=== PATIENT | female | born 1990 | race Caucasian/White ===

== ENCOUNTER → 2019-08-31 | Outpatient (CLI) | payer BC ==
[~2019-08-31] MED LIST: NO HOME MEDICATIONS
[2019-08-31 17:31] LABS: BASO % 0.2 % (0.0-2.0); EOS # 0.1 (0.0-0.7); EOS % 0.8 % (0-4.0); GRAN # 7.7 (1.4-6.5); GRAN % 70.9 % (42.2-75.2); HEMOGLOBIN 12.2 g/dl (12.5-16.0); LYMPH # 2.5 (1.2-3.4); LYMPH % 22.7 % (20.0-51.0); MEAN CELL VOLUME 86 fl (80.0-100.0); MEAN CORPUSCULAR HEMOGLOBIN 29 pg (27.0-31.0); MEAN CORPUSCULAR HGB CONC 34 g/dl (33.0-37.0); MEAN PLATELET VOLUME 9.4 fl (7.4-10.4); MONO # 0.5 (0.1-0.6); PLATELET COUNT 331 K/mm3 (130-400); RED BLOOD COUNT 4.21 M/mm3 (4.10-5.30); REDCELL DISTRIBUTION WIDTH-CV 12.2 % (11.5-14.5)
[2019-08-31 17:40] LABS: ALBUMIN 4.2 gm/dL (3.5-5.0); BILIRUBIN,TOTAL 0.3 mg/dL (0.0-1.0); CALCIUM 9.5 mg/dL (8.4-10.2); CREATININE, serum 0.43 (0.52-1.25); MAGNESIUM 1.8 mg/dL (1.6-2.3); TOTAL PROTEIN 7.6 gm/dL (6.4-8.2)
[2019-08-31 18:11] LABS: THYROID STIMULATING HORMONE 0.602 uIU/mL (0.465-4.680)
== END ==
LOC: COL.LAB 17:02
PROVIDERS: Nurse Practitioner Family
DX: R00.2 Palpitations (principal)

== ENCOUNTER → 2020-02-14 | Outpatient (CLI) | payer BC ==
[~2020-02-14] MED LIST changes: +GLUCOPHAGE500 MG/TAB; +GLUCOPHAGE500 MG/TAB PO; +IBU800 M1 PO; +PERCOCET 325 MG1 TA2 PO; +PRENATAL TABLET PO; +PROCARDIA XL 3030 MG PO
== END | disposition still patient (30) ==
LOC: ZCOL.LAB 05:46
DX: Z20.828 Contact with and (suspected) exposure to other viral communicable diseases (principal)

== ENCOUNTER 2020-02-16 16:39 | Inpatient (IN) | payer BC ==
[~2020-02-16] VITALS: Ht 165.2 cm; Wt 135.9 kg
[2020-02-16] VITALS (7 sets, daily range): BP systolic 137–166; BP diastolic 65–86; PULSE 76–100; TEMP 98.8
[~2020-02-16 16:39] MED LIST changes: -GLUCOPHAGE500 MG/TAB; -GLUCOPHAGE500 MG/TAB PO; -IBU800 M1 PO; -PERCOCET 325 MG1 TA2 PO; -PRENATAL TABLET PO; -PROCARDIA XL 3030 MG PO
--- NOTE | 2020-02-16 19:00 | NUR ---
190 G1LO 39 WEEK GEST TO LR6 FOR CYTOTEC VAG INDUCTION. 1914 TO BED AND EFM ON. VS DONE. ADM ASSESMENT DONE. PT HAS HX CHRONIC HTN FOR LAST 4 YEARS AND HAS BEEN ON B/P MEDICATION. STATES SHE WAS SICK A COUPLE OF WEEKS AGO AND HAD A COVID TEST THAT WAS NEG. HAD COVID TEST FOR HER INDUCTION BUT DOES NOT KNOW THE RESULTS YET. 1929 DR ABBOTT CALLED REGARDING PT INITIAL B/P READING AND ORDERS RECEIVED.
[2020-02-16] MEDS ORDERED: GLUCOPHAGE500 MG/TAB (19:23)
[2020-02-16] MEDS ORDERED: PROCARDIA XL 3030 MG PO ×2 (19:23→19:28)
[2020-02-16] MEDS ORDERED: GLUCOPHAGE500 MG/TAB PO (19:27)
[2020-02-16] MEDS ORDERED: PRENATAL TABLET PO (19:27)
--- NOTE | 2020-02-16 19:50 | NUR ---
1950 INT STARTED IN LEFT WRIST. LAB DRAWN. UP TO BR TO VOID AND CCUA OBTAINED
--- NOTE | 2020-02-16 20:15 | NUR ---
2015 CYTOTEC 50 MCG TO POSTERIOR FORNIX. TO LL TO REST.
[2020-02-16 20:30] LABS: COLLECTION METHOD CLEAN CATCH
[2020-02-16 20:33] LABS: BASO % 0.2 % (0.0-2.0); EOS # 0.1 (0.0-0.7); EOS % 0.6 % (0-4.0); GRAN # 6.8 (1.4-6.5); GRAN % 67.8 % (42.2-75.2); HEMOGLOBIN 10.2 g/dl (12.5-16.0); LYMPH # 2.4 (1.2-3.4); LYMPH % 23.5 % (20.0-51.0); MEAN CELL VOLUME 84 fl (80.0-100.0); MEAN CORPUSCULAR HEMOGLOBIN 27 pg (27.0-31.0); MEAN CORPUSCULAR HGB CONC 32 g/dl (33.0-37.0); MEAN PLATELET VOLUME 10.2 fl (7.4-10.4); MONO # 0.8 (0.1-0.6); MONO % 7.5 % (1.7-9.3); PLATELET COUNT 374 K/mm3 (130-400); RED BLOOD COUNT 3.75 M/mm3 (4.10-5.30); REDCELL DISTRIBUTION WIDTH-CV 13.1 % (11.5-14.5)
[2020-02-16 20:34] LABS: HEMATOCRIT 31.5 % (37.0-47.0)
[2020-02-16 20:37] LABS: PH 5 (5-8); SQUAMOUS EPITHELIAL 0-2 /hpf; URINE APPEARANCE Clear; URINE BACTERIA Rare /hpf; URINE BILIRUBIN Negative (NEGATIVE); URINE BLOOD Negative (NEGATIVE); URINE COLOR Straw; URINE GLUCOSE Negative (NEGATIVE); URINE KETONE Negative (NEGATIVE); URINE LEUKOCYTE ESTERASE Trace (NEGATIVE); URINE NITRATE Negative (NEGATIVE); URINE PROTEIN(semi-quant) Negative (NEGATIVE); URINE RBC 0-2 /hpf; URINE UROBILINOGEN Negative (NEGATIVE)
[2020-02-16 20:45] LABS: ALBUMIN 3.6 gm/dL (3.5-5.0); BILIRUBIN,TOTAL 0.3 mg/dL (0.0-1.0); CALCIUM 8.9 mg/dL (8.4-10.2); CREATININE, serum 0.59 (0.52-1.25); POTASSIUM 3.9 mmol/L (3.4-5.0); TOTAL PROTEIN 6.9 gm/dL (6.4-8.2)
--- NOTE | 2020-02-16 21:40 | NUR ---
2140 UP TO BR AND VOIDED. RETURNED TO BED SITTING HF AND WL. STATES FEELS NO CONTRACTIONS OR CRAMPING AT THIS TIME. CONTRACTIONS NOTED ON EFM EVERY 3 MINUTES.
--- NOTE | 2020-02-16 23:45 | NUR ---
2345 STATES IS FEELING VERY CRAMPY AND HAVING PAIN ABOUT EVERY MINUTE OR TWO. LYING ON RIGHT SIDE. UNABLE TO SKILL TRAINING PROGRAM COORDINATOR GOOD CONTRACTION PATTERN BUT UTERUS PALPATED AND CONTRACTIONS FELT MODERATE EVERY ONE TO TWO MINUTES LASTING 30-45 SECONDS.
[2020-02-17] VITALS (63 sets, daily range): BP systolic 120–193; BP diastolic 59–898; PULSE 64–101; TEMP 97.9–98.5
--- NOTE | 2020-02-17 00:15 | NUR ---
0015 C/O FEELING UNCOMFORTABLE WITH CONTRACTIONS AND THEY FEEL CONTINUOUS. EFM SHOWS CONTRACTIONS EVERY 1 MINUTE LASTING 30-60 SECONDS. PALPATES MODERATE. SVE WITH NO CERVICAL CHANGE. [address] ABBOTT NOTIFIED OF CONTRACTION PATTERN. ORDERS RECEIVED TO NOT PLACE ANY OTHER CYTOTEC AND TO START PITOCIN INDUCTION AT 0600.
--- NOTE | 2020-02-17 01:35 | NUR ---
0135 IV FLUIDS STARTED TO INT SITE.
--- NOTE | 2020-02-17 02:20 | NUR ---
0220 IV FLUIDS STOPPED AND IV TO INT. UP TO BR AND VOIDED. UP IN ROOM AMB FOR COMFORT.
--- NOTE | 2020-02-17 03:00 | NUR ---
0300 RETURNED TO BED. SF AND WEDGED LEFT. DR ABBOTT HERE ON UNIT. CONTS TO CONTRACT EVERY 1-2 MINUTES WITH LATE DECELS NOTED. SVE 1-260/-3. TO RIGHT LATERAL. IV FLUIDS RESTARTED AND BOLUS GIVEN.
--- NOTE | 2020-02-17 03:25 | NUR ---
0325 FHT'S BASE 150-160 WITH VARIABLE DECELS NOTED. TO LL. UNABLE TO AMMONIA BOX TENDER CONTRACTIONS ON EFM WHILE ON SIDE. DR ABBOTT HERE REVIEWING STRIP. O2 ON AT 10L PER MASK. 0330 BRETHINE 0.25 MG SQ GIVEN.
--- NOTE | 2020-02-17 05:00 | NUR ---
0500 SLEEPING ON LEFT SIDE. UNABLE TO AUTO MOTOR MECHANIC CONTRACTIONS ON EFM WHILE LAYING ON SIDE. 0505 AWAKE AND UP TO BR. STATES FEELS LIKE CONTRACTIONS ARE BECOMING MORE FREQUENT AGAIN. STANDING AT SIDE OF BED FOR COMFORT.
--- NOTE | 2020-02-17 08:20 | NUR ---
0820-Updated MD on patients BP 161/86. Orders to have patient take home med Procardia ER 30mg. Patient reported "I just took it now."
--- NOTE | 2020-02-17 08:40 | NUR ---
0840-Patient up to bathroom, calls out and reports "some fluid just fell on floor." Fluid clear and a small amount. 0844-SVE 2-3/70/-3, Amnitest negative, head ballotable, no fluid on exam. Repositioned WL. 0900-Difficulty tracing FHR due to positon and habitus of patient. RN frequently readjusting EFM> 0910-Patient up to bathroom, 0920-Patient desires to stand. Standing at bedside until 0920 and back to bed WR.
--- NOTE | 2020-02-17 09:45 | NUR ---
[id number] Difficulty tracing contractions via toco due to maternal position and habitus. RN frequently readjusting toco.
--- NOTE | 2020-02-17 11:05 | NUR ---
1105-Dr. Borja to unit reviws FHR monitor. In to see patient 1111-SVE by , AROM clear fluid noted. Orders to continue to increase pitocin per protocol, Pit to 16 mu at this time.
--- NOTE | 2020-02-17 12:20 | NUR ---
1220-Dr. Borja on unit, updated on patients report of " I don't know if I can do this much longer, I am ready for my epidural." MD gives order to get epidural. GULSHAN Lanza notified of patients request. 1225-Patient to bed sitting upright for epidural. 1235-Dr. Borja to patient room to update on plan of care prior to leaving uint. 1240-GULSHAN Lanza to patient room. 1250-Test dose administered by GULSHAN Lanza. Patient tolerated well. Repositioned WL.
--- NOTE | 2020-02-17 13:05 | NUR ---
[id number] Recurrent prolonged decels in FHR, IVF bolus, Maternal BP down to 135/62 1315-5mg IV ephedrine given at this time by GULSHAN Lanza. BP reading immediately following IV push of ephedrine 190/80. SVE by this RN /-2,FSE placed, Repositioned WL. 1325-Dr. Borja updated. 1400-[place] to DD, SVE at this time unchanged, FHR decel following SVE. Dr. Borja called unit for update after reviewing montor at home and seeingmaternal bp 171/90. Updated on SVE. Order recieved to give IV labetalol 20mg Now. 1410-Dr. Borja contacted back to report maternal BP 143/68. Orders to stop pit and hold labetalol. Orders to go to knee chest if possible. 1412-FSE fell off and and attempted to replace with new FSE by Sun Ordoñez RN. While moving to knee chest FSE off with movement. Repositioned WL and sherry DAVIS at 1424.
--- NOTE | 2020-02-17 15:30 | NUR ---
1530-Contacted Dr. Borja in regards to plan of care. MD reports in route to hospital. 1535-Dr. Kidd on unit. In to see patient and review strip with patient. 1540-SVE 2, Repositioned LL MD discusses options with patient. 1600-Decision to proceed to OR made by MD and patient. Patient prepped for OR.1605-Patient off EFM and taken via bed to OR.
--- NOTE | 2020-02-17 17:15 | NUR ---
1715-Patient to PACU via bed A&O x4. VSS, see flow record. Dr. Borja in to see patient. Recieved report from CRNA. Nain Lanza to DD, Clear yellow urine. Abdomen soft round, dressing C/D/I. Fundal massage firm, lochia WNL.
[2020-02-18] VITALS: BP 149/88; PULSE 88; TEMP 98.3
[2020-02-18 04:00] VITALS: BP 130/72; PULSE 74; TEMP 98.1
[2020-02-18 12:15] VITALS: BP 142/84; PULSE 76; TEMP 97.8
[2020-02-18 16:15] VITALS: BP 146/76; PULSE 78; TEMP 98.2
[2020-02-18 20:00] VITALS: BP 141/77; PULSE 89; TEMP 98.4
[2020-02-19 02:00] VITALS: BP 148/81; PULSE 85; TEMP 98.5
[2020-02-19 07:10] VITALS: BP 156/83; PULSE 83; TEMP 98
[2020-02-19] MEDS ORDERED: IBU800 M1 PO (12:35)
[2020-02-19] MEDS ORDERED: PERCOCET 325 MG1 TA2 PO (12:36)
[2020-02-19 13:55] VITALS: BP 151/86; PULSE 90
--- NOTE | 2020-02-19 14:04 | NUR ---
1400 DR HOSKINS NOTIFIED OF PATIENT'S BP PER HER REQUEST. BP 151/86. ORDERS RECEIVED FOR 1-30MG TAB OF PROCARDIA NOW AND PATIENT IS TO INCREASE DOSE STARTING TOMORROW TO 60MG/DAY.
--- NOTE | 2020-02-19 15:35 | NUR ---
1500 DISCHARGE INSTRUCTIONS REVIEWED WITH PATIENT. ALL QUESTIONS ANSWERED. PATIENT VERBALIZED UNDERSTANDING. PATIENT WILL NOTIFY THIS RN WHEN READY TO LEAVE. 1510 ALL PERSONAL BELONGINGS GATHERED FROM PATIENT ROOM. PATIENT LEFT AMBULATORY AND IN NO APPARENT DISTRESS. PATIENT ACCOMPANIED BY SPOUSE AND THIS RN.
== END 2020-02-19 15:10 | disposition home or self-care (01) | DRG 787 ==
LOC: OB 16:39 → LDR 19:08 → OB 19:08
PROVIDERS: Obstetrics & Gynecology; ADMIT Student in an Organized Health Care Education/Training Program
PROC: 10D00Z1 Extraction of Products of Conception, Low, Open Approach (ICD-10-PCS; principal; 2020-02-17)
PROC: 10907ZC Drainage of Amniotic Fluid, Therapeutic from Products of Conception, Via Natural or Artificial Opening (ICD-10-PCS; 2020-02-17)
PROC: 3E0P7GC Introduction of Other Therapeutic Substance into Female Reproductive, Via Natural or Artificial Opening (ICD-10-PCS; 2020-02-17)
PROC: 3E0234Z Introduction of Serum, Toxoid and Vaccine into Muscle, Percutaneous Approach (ICD-10-PCS; 2020-02-18)
DX: O10.92 Unspecified pre-existing hypertension complicating childbirth (principal); O98.32 Other infections with a predominantly sexual mode of transmission complicating childbirth; O99.283 Endocrine, nutritional and metabolic diseases complicating pregnancy, third trimester; E28.2 Polycystic ovarian syndrome; O77.9 Labor and delivery complicated by fetal stress, unspecified; O99.213 Obesity complicating pregnancy, third trimester; O99.613 Diseases of the digestive system complicating pregnancy, third trimester; K21.9 Gastro-esophageal reflux disease without esophagitis; A60.09 Herpesviral infection of other urogenital tract; Z3A.39 39 weeks gestation of pregnancy; Z37.0 Single live birth
CPT/HCPCS: J0360; J0690; J1885; J2400; J2405; J2590; J2791; J3105; J7120

== ENCOUNTER 2020-07-24 01:44 | Emergency (ER) | payer BC ==
[~2020-07-24] VITALS: Ht 162.6 cm; Wt 129.4 kg
[~2020-07-24 01:44] MED LIST changes: +GLUCOPHAGE500 MG/TAB; +GLUCOPHAGE500 MG/TAB PO; +IBU800 M1 PO; +PERCOCET 325 MG1 TA2 PO; +PRENATAL TABLET PO; +PROCARDIA XL 3030 MG PO
[2020-07-24 01:53] VITALS: TEMP 97
[2020-07-24 02:48] LABS: BASO % 0.2 % (0.0-2.0); EOS % 0.3 % (0-4.0); GRAN # 8.3 (1.4-6.5); GRAN % 82.3 % (42.2-75.2); HEMATOCRIT 37.4 % (37.0-47.0); LYMPH # 1.3 (1.2-3.4); LYMPH % 12.6 % (20.0-51.0); MEAN CELL VOLUME 83 fl (80.0-100.0); MEAN CORPUSCULAR HEMOGLOBIN 27 pg (27.0-31.0); MEAN CORPUSCULAR HGB CONC 32 g/dl (33.0-37.0); MEAN PLATELET VOLUME 9.3 fl (7.4-10.4); MONO # 0.4 (0.1-0.6); MONO % 4.4 % (1.7-9.3); PLATELET COUNT 413 K/mm3 (130-400); REDCELL DISTRIBUTION WIDTH-CV 12.8 % (11.5-14.5)
[2020-07-24 03:01] LABS: ALBUMIN 4.6 gm/dL (3.5-5.0); BILIRUBIN,TOTAL 1.1 mg/dL (0.0-1.0); C-REACTIVE PROTEIN 2.5 mg/dL (0.0-0.9); CREATININE, serum 0.6 (0.52-1.25); POTASSIUM 4.3 mmol/L (3.4-5.0); TOTAL PROTEIN 8.1 gm/dL (6.4-8.2)
[2020-07-24] MEDS ORDERED: NORCO 325 MG-51 TAB PO (03:22)
[2020-07-24 03:24] VITALS: BP 129/72; PULSE 60
[2020-07-25] MEDS ORDERED: MOTRIN 600600 MG/TAB PO (16:12)
[2020-07-25] MEDS ORDERED: PERCOCET 325 MG1 TA2 PO ×2 (16:13)
[2020-07-25] MEDS ORDERED: CIPRO 500MG TA500 MG PO (16:13)
[2020-07-25] MEDS ORDERED: FLAGYL500 MG PO (16:13)
== END 2020-07-24 03:40 | disposition home or self-care (01) ==
LOC: COL.ER 01:44
PROVIDERS: Emergency Medicine
DX: O26.892 Other specified pregnancy related conditions, second trimester (principal); R10.11 Right upper quadrant pain; O10.012 Pre-existing essential hypertension complicating pregnancy, second trimester; Z3A.20 20 weeks gestation of pregnancy; Z79.84 Long term (current) use of oral hypoglycemic drugs; Z87.891 Personal history of nicotine dependence
CPT/HCPCS: J1885; J2405; J7120

== ENCOUNTER 2020-07-25 11:54 | Day surgery (SDC) | payer BC ==
[2020-07-25] VITALS (10 sets, daily range): BP systolic 130–148; BP diastolic 62–78; PULSE 68–79; TEMP 97.9–98.6
[~2020-07-25] VITALS: Ht 162.6 cm; Wt 128.0 kg
[~2020-07-25 11:54] MED LIST changes: +NORCO 325 MG-51 TAB PO
[2020-07-25] MEDS ORDERED: MOTRIN 600600 MG/TAB PO (16:12)
[2020-07-25] MEDS ORDERED: FLAGYL500 MG PO (16:13)
[2020-07-25] MEDS ORDERED: CIPRO 500MG TA500 MG PO (16:13)
[2020-07-25] MEDS ORDERED: PERCOCET 325 MG1 TA2 PO ×2 (16:13)
--- NOTE | 2020-07-25 16:56 | NUR ---
Patient to room via bed from PACU. Ambulates from bed in [place] to bed in room. Gait slow and steady. Denies feeling dizzy but having a small amount of nausea. Assist into bed. Oxygen on at 1L/NC. Patient says that she is tired, encourage rest. [place] to room. Spouse in room. Spouse will call to see if prescriptions are available for berry picker and berry picker prescriptions before pharmacy closes and come back. Water provided. Lap sites x4 with edges well approximated, no redness/swelling/discharge.
--- NOTE | 2020-07-25 17:10 | NUR ---
Rating pain 5/10, would like pain medication to get ahead of the pain. Administer Percocet and ibuprofen as prescribed. Provide jello and juice. Denies additional needs.
--- NOTE | 2020-07-25 21:52 | NUR ---
Patient awake, alert, oriented, dressed to go home, removed IV w/o issue, reviewed discharge instructions, medications and appointments, at bedside, verbalized understanding and denied further question, stable, VS stable, pain rating 4/10 to surgical incisions, already picked up prescriptions, escorted from floor in wheelchair with all belongings to family car. Releassed in care of [facility].
== END 2020-07-25 21:45 | disposition home or self-care (01) ==
LOC: SDCO 11:54 → SURG 16:49 → SDCO 21:45
PROVIDERS: Surgery
DX: K80.00 Calculus of gallbladder with acute cholecystitis without obstruction (principal); U07.1 COVID-19; I10 Essential (primary) hypertension; E11.9 Type 2 diabetes mellitus without complications; E66.01 Morbid (severe) obesity due to excess calories; Z68.42 Body mass index [BMI] 45.0-49.9, adult; Z79.84 Long term (current) use of oral hypoglycemic drugs; Z79.899 Other long term (current) drug therapy
CPT/HCPCS: OP; J0690; J1100; J1170; J2250; J2405; J2550; J2704; J3010; J7120

== ENCOUNTER 2020-07-29 10:14 | Day surgery (SDC) | payer BC ==
[~2020-07-29] VITALS: Ht 162.6 cm; Wt 125.8 kg
[~2020-07-29 10:14] MED LIST changes: +CIPRO 500MG TA500 MG PO; +FLAGYL500 MG PO; +MOTRIN 600600 MG/TAB PO
[2020-07-29] MEDS ORDERED: SPRINTEC 35 MCG1 TAB PO (11:22)
[2020-07-29 11:33] VITALS: BP 150/98; PULSE 85; TEMP 98.7
[2020-07-29 12:30] VITALS: BP 155/90; PULSE 89; TEMP 97.5
--- NOTE | 2020-07-29 12:30 | NUR ---
Pt to GI bay 5 via cart from [place]. Pt awake and alert. Pt ambulates to recliner with stand by assistance. Warm blankets provided. in room. Jello and water provided. Pt denies pain or nausea at this time. Will continue to monitor. Call light within reach.
[2020-07-29 12:45] VITALS: BP 147/88; PULSE 80
--- NOTE | 2020-07-29 12:45 | NUR ---
Pt tolerating clear liquids without difficulties. Will continue to monitor. Call light within reach.
[2020-07-29 13:00] VITALS: BP 144/85; PULSE 77
--- NOTE | 2020-07-29 13:00 | NUR ---
Pt c/o discomfort to RUQ. Pt rates pain 07/16. Pt states "it's tolerable." Pt denies need for pain medication. Pt denies nausea. Call light within reach.
[2020-07-29 13:15] VITALS: BP 135/71; PULSE 77
--- NOTE | 2020-07-29 13:15 | NUR ---
Pt continues to rest. Denies needs. Call light within reach.
[2020-07-29 13:45] VITALS: BP 147/89; PULSE 76
--- NOTE | 2020-07-29 13:45 | NUR ---
Pt continues to rest. Denies needs. Call light within reach.
--- NOTE | 2020-07-29 14:19 | NUR ---
Discharge instructions reviewed. Pt voices understanding. IV site discontinued with all parts intact. Pt up to dress. Call light within reach.
--- NOTE | 2020-07-29 14:25 | NUR ---
Pt escorted to private car via wheel chair. Pt accompanied home by her .
== END 2020-07-29 14:25 | disposition home or self-care (01) ==
LOC: SDCO 10:14
DX: K80.50 Calculus of bile duct without cholangitis or cholecystitis without obstruction (principal); I10 Essential (primary) hypertension; E11.9 Type 2 diabetes mellitus without complications; Z79.84 Long term (current) use of oral hypoglycemic drugs; Z79.899 Other long term (current) drug therapy
CPT/HCPCS: C1769; J2250; J2704; J3010

== ENCOUNTER 2020-09-06 13:24 | Emergency (ER) | payer BC ==
[~2020-09-06] VITALS: Ht 162.6 cm; Wt 126.4 kg
[~2020-09-06 13:24] MED LIST changes: +SPRINTEC 35 MCG1 TAB PO
[2020-09-06 14:45] LABS: BASO % 0.3 % (0.0-2.0); EOS # 0.1 (0.0-0.7); EOS % 0.6 % (0-4.0); GRAN # 10.4 (1.4-6.5); GRAN % 79.5 % (42.2-75.2); HEMATOCRIT 37.3 % (37.0-47.0); HEMOGLOBIN 12.3 g/dl (12.5-16.0); LYMPH % 15.2 % (20.0-51.0); MEAN CELL VOLUME 84 fl (80.0-100.0); MEAN CORPUSCULAR HEMOGLOBIN 28 pg (27.0-31.0); MEAN CORPUSCULAR HGB CONC 33 g/dl (33.0-37.0); MEAN PLATELET VOLUME 9.1 fl (7.4-10.4); MONO # 0.5 (0.1-0.6); PLATELET COUNT 413 K/mm3 (130-400); RED BLOOD COUNT 4.45 M/mm3 (4.10-5.30); REDCELL DISTRIBUTION WIDTH-CV 12.8 % (11.5-14.5)
[2020-09-06 15:04] LABS: BILIRUBIN,TOTAL 0.4 mg/dL (0.0-1.0); CREATININE, serum 0.56 (0.52-1.25); TOTAL PROTEIN 7.7 gm/dL (6.4-8.2)
[2020-09-06] MEDS ORDERED: ZOFRAN ODT4 MG PO (16:01)
[2020-09-06] MEDS ORDERED: BENTYL 20MG20 MG/TAB PO (16:01)
[2020-09-06 16:20] VITALS: BP 136/64; PULSE 88; TEMP 98
== END 2020-09-06 16:55 | disposition home or self-care (01) ==
LOC: COL.ER 13:24
PROVIDERS: Physician Assistant
DX: R19.7 Diarrhea, unspecified (principal); R11.2 Nausea with vomiting, unspecified; D72.829 Elevated white blood cell count, unspecified; R10.11 Right upper quadrant pain; Z87.891 Personal history of nicotine dependence